=== PATIENT | female | born 1970 | race African-American/Black ===

== ENCOUNTER 2019-02-11 16:07 | Emergency (ER) | payer OTHER ==
[~2019-02-11] VITALS: Ht 157.5 cm; Wt 91.2 kg
[~2019-02-11 16:07] MED LIST: COZAAR 25 MG TA25 M1 PO; HYDROCODON-ACE1 EAC5; METFORMIN HCL500 MG PO; METHOCARBAMOL500 M2 PO; NAPROSYN500 MG PO; TRIAMTERENE/HCT1 CA1; ZPAK PO
[2019-02-11 16:45] LABS: URINE BILIRUBIN NEGATIVE (Negative); URINE BLOOD NEGATIVE (Negative); URINE CLARITY CLEAR; URINE COLOR YELLOW; URINE GLUCOSE-RANDOM* NEGATIVE (Negative); URINE KETONES NEGATIVE (Negative); URINE LEUKOCYTES-REFLEX NEGATIVE (Negative); URINE NITRITE-REFLEX NEGATIVE (Negative); URINE PROTEIN (DIPSTICK) NEGATIVE (Negative); URINE SPECIFIC GRAVITY >= 1.030 (1.005-1.035); URINE UROBILINOGEN 0.2 E.U./dl (0.2-1.0)
[2019-02-11] MEDS ORDERED: ROBAXIN500 MG PO (18:02)
[2019-02-11] MEDS ORDERED: TYLENOL EXTRA500 MG PO (18:02)
[2019-02-11 19:23] LABS: ABSOLUTE NEUTROPHILS 4.4 thou/uL (1.4-8.2); EOSINOPHILS 1.8 % (0.0-3.0); HEMATOCRIT 40.9 % (37.0-47.0); HEMOGLOBIN 13.6 gm/dL (12.0-15.0); LYMPHOCYTES 45.8 % (24.0-44.0); MCH 28.3 pg (26.0-34.0); MCHC 33.4 g/dL (28.0-37.0); MCV 84.8 fL (80.0-100.0); MONOCYTES 5.9 % (1.0-8.0); PLATELET COUNT 236 thou/uL (150-400); POLYS 45.5 % (36.0-66.0); RBC 4.82 mil/uL (4.20-5.00); RDW 13.8 % (10.5-14.5); WBC 9.8 thou/uL (4.0-11.0)
[2019-02-11 19:32] LABS: CALCIUM 9.7 mg/dL (8.5-10.1); CREATININE 1.1 mg/dL (0.6-1.0); POTASSIUM 3.3 mmol/L (3.5-5.1)
[2019-02-11 19:38] LABS: ALBUMIN 3.6 g/dL (3.4-5.0); TOTAL BILIRUBIN 0.4 mg/dL (<0.1-1.0); TOTAL PROTEIN 7.7 g/dL (6.4-8.2)
[2019-02-11 20:06] VITALS: BP 110/78
== END 2019-02-11 20:07 | disposition home or self-care (01) ==
LOC: ER 16:07
PROVIDERS: Emergency Medicine
DX: M54.5 Low back pain (principal); N89.8 Other specified noninflammatory disorders of vagina

== ENCOUNTER 2019-07-24 10:46 | Emergency (ER) | payer BC ==
[~2019-07-24] VITALS: Ht 157.5 cm; Wt 95.3 kg
[~2019-07-24 10:46] MED LIST changes: +ROBAXIN500 MG PO; +TYLENOL EXTRA500 MG PO
[2019-07-24] MEDS ORDERED: NORFLEX100 MG PO (11:30)
[2019-07-24] MEDS ORDERED: MOBIC7.5 MG PO (11:30)
[2019-07-24 12:30] VITALS: BP 114/71
== END 2019-07-24 12:31 | disposition home or self-care (01) ==
LOC: ER 10:46
DX: S33.5XXA Sprain of ligaments of lumbar spine, initial encounter (principal); M54.17 Radiculopathy, lumbosacral region; I10 Essential (primary) hypertension; E11.9 Type 2 diabetes mellitus without complications; X58.XXXA Exposure to other specified factors, initial encounter; Y92.89 Other specified places as the place of occurrence of the external cause; Y93.89 Activity, other specified; Y99.8 Other external cause status

== ENCOUNTER 2020-06-22 10:54 | Emergency (ER) | payer BC ==
[~2020-06-22] VITALS: Ht 157.5 cm; Wt 80.7 kg
[~2020-06-22 10:54] MED LIST changes: +MOBIC7.5 MG PO; +NORFLEX100 MG PO
[2020-06-22 12:02] LABS: ABSOLUTE NEUTROPHILS 5.8 thou/uL (1.4-8.2); BASOPHILS 0.7 % (0.0-2.0); EOSINOPHILS 1.7 % (0.0-3.0); HEMATOCRIT 38.6 % (37.0-47.0); HEMOGLOBIN 12.6 gm/dL (12.0-15.0); MCH 28.4 pg (26.0-34.0); MCHC 32.8 g/dL (28.0-37.0); MCV 86.7 fL (80.0-100.0); MONOCYTES 4.8 % (1.0-8.0); PLATELET COUNT 197 thou/uL (150-400); POLYS 64.8 % (36.0-66.0); RBC 4.45 mil/uL (4.20-5.00); RDW 13.9 % (10.5-14.5); WBC 8.9 thou/uL (4.0-11.0)
[2020-06-22 12:20] LABS: ANION GAP 14 mmol/L (7-16); BUN 11 mg/dL (7-18); CALCIUM 8.9 mg/dL (8.5-10.1); CHLORIDE 106 mmol/L (98-107); CO2 22 mmol/L (21-32); GLUCOSE 198 mg/dL (74-106); POTASSIUM 3.4 mmol/L (3.5-5.1); SODIUM 142 mmol/L (136-145)
[2020-06-22 12:31] LABS: ALBUMIN 3.4 g/dL (3.4-5.0); LIPASE 75 U/L (73-393); SGOT 20 U/L (15-37); SGPT 60 U/L (30-65); TOTAL BILIRUBIN 0.5 mg/dL (0.2-1.0); TROPONIN-I <0.06 ng/mL (<0.06)
--- NOTE | 2020-06-22 13:15 | EKG ---
[facility] [place] [address] ELECTROCARDIOGRAM REPORT Name: MIKE CRAIGLINGalina Armenta Room #: [facility]#: [id number] Admission: 06/22/20 Attend Phys: Discharge: Date of : 66 Report #: [id number] THIS REPORT FOR: cc: [facility] - Clinic physician unknown [facility] - Clinic physician unknown Eusebio Clark MD [facility] ~ THIS REPORT FOR: //name// [facility] ED Test Date: 2020-06-22 Test Time: 12:41:07 Pat Name: SAADIA CRAIG Department: Room: Gender: F Digital Librarian: [facility] : 1970 Requested By: Raymundo Bryant Order Number: [id number] MD: Eusebio Clark Measurements Intervals [place] Rate: 53 P: 42 UT: 121 QRS: 46 QRSD: 247 T: 54 QT: 467 QTc: 439 Interpretive Statements Sinus rhythm Probable left ventricular hypertrophy Compared to ECG 05/23/2016 16:43:39 No significant changes Electronically Signed On 06-22-2020 13:15:12 ELEVATOR MECHANIC by Eusebio Clark [email or web address] <ELECTRONICALLY SIGNED> By: Eusebio Clark MD, FACC 06/22/20 1315 1241 124 Eusebio Clark MD, FAC /EPI
[2020-06-22 16:21] LABS: URINE BILIRUBIN NEGATIVE (Negative); URINE BLOOD NEGATIVE (Negative); URINE CLARITY CLEAR; URINE COLOR YELLOW; URINE GLUCOSE-RANDOM* 1+ (Negative); URINE KETONES NEGATIVE (Negative); URINE LEUKOCYTES-REFLEX NEGATIVE (Negative); URINE NITRITE-REFLEX NEGATIVE (Negative); URINE PROTEIN (DIPSTICK) NEGATIVE (Negative); URINE UROBILINOGEN 0.2 E.U./dl (0.2-1.0)
[2020-06-22 17:05] VITALS: BP 167/101
== END 2020-06-22 17:10 | disposition home or self-care (01) ==
LOC: ER 10:54
PROVIDERS: Emergency Medicine
DX: R10.13 Epigastric pain (principal); R07.89 Other chest pain; M54.9 Dorsalgia, unspecified; R06.02 Shortness of breath; R11.0 Nausea; E11.9 Type 2 diabetes mellitus without complications; I10 Essential (primary) hypertension; Z79.899 Other long term (current) drug therapy